=== PATIENT | female | born 1985 | race Caucasian/White ===

== ENCOUNTER 2017-02-02 16:16 | Emergency (ER) | payer SELFPAY ==
--- NOTE | 2017-02-02 16:42 | ED ---
General Adult HPI - General Chief complaint: Recheck/Abnormal Lab/Rx Stated complaint: swollen vein in leg Time Seen by Provider: 02/02/17 16:38 Source: patient, RN notes reviewed Mode of arrival: ambulatory Limitations: no limitations - History of Present Illness Initial comments: Patient 32-year-old female who is approximately 7 weeks , presenting today with a chief complaint of possible varicose vein to the popliteal area of the right. Patient does admit that she's noticed this in the past but is been more painful over the last day. She denies any other complaints or symptoms. Patient denies any recent fever, chills, shortness of breath, chest pain, back pain, abdominal pain, nausea or vomiting, numbness or tingling, dysuria or hematuria, constipation or diarrhea, headaches or visual changes, or any other complaints. - Related Data Home Medications Medication Instructions Recorded Confirmed Pnv,Calcium 72/Iron/Folic Acid 1 tab PO HS 11/03/14 02/02/17 [ Plus Tablet] Allergies Allergy/AdvReac Type Severity Reaction Status Date / Time No Known Allergies Allergy Verified 02/02/17 16:41 Review of Systems ROS Statement: Those systems with pertinent positive or pertinent negative responses have been documented in the HPI. ROS Other: All systems not noted in ROS Statement are negative. Past Medical History Past Medical History: No Reported History Additional Past Medical History / Comment(s): Obstetric history: First was a primary low transverse for Breech. This is her second . She has had care with mn since 7 weeks gestation. A+, abs neg, Rub Imm, RPR Nr, Hep B neg. She does have gestational diabetes A1, followed with NSTs and USs. GBS neg. Discussed all risks of with her several times during the . History of Any Multi-Drug Resistant Organisms: None Reported Past Surgical History: Section Past Anesthesia/Blood Transfusion Reactions: No Reported Reaction Past Psychological History: No Psychological Hx Reported Smoking Status: Never smoker Past Alcohol Use History: None Reported Past Drug Use History: None Reported General Exam - General Exam Comments Initial Comments: General: The patient is awake and alert, in no distress, and does not appear acutely ill. Neck: The neck is supple, there is no tenderness or JVD. Cardiovascular: There is a regular rate and rhythm. No murmur, rub or gallop is appreciated. Respiratory: Lungs are clear to auscultation, respirations are non-labored, breath sounds are equal. No wheezes, stridor, rales, or rhonchi. Musculoskeletal: Full range motion. Sensation intact. Pulses bilateral 2+. Strength 5/5 in all areas. Neurological: A&O x 3. CN II-XII intact, There are no obvious motor or sensory deficits. Coordination appears grossly intact. Speech is normal. Skin: Redness popliteal on the right with tenderness present. Psychiatric: Normal mood and affect. Limitations: no limitations Course Vital Signs 02/02/17 16:30 Temperature 97.0 F L Pulse Rate 83 Respiratory 17 Rate Blood Pressure 131/78 O2 Sat by Pulse 99 Oximetry Medical Decision Making - Medical Decision Making Patient REVIEWED SHOWS NO EVIDENCE OF DVT. THERE IS EVIDENCE FOR POSSIBLE SUPERFICIAL VENOUS THROMBOSIS TO POPLITEAL AREA. RESULTS WERE DISCUSSED WITH THE PATIENT. SHE IS ADVISED Warm COMPRESSES.. TYLENOL FOR PAIN. ADVISED RETURN TO EMERGENCY ROOM IF SYMPTOMS INCREASE OR WORSEN OR FOR ANY OTHER CONCERNS. Disposition Clinical Impression: Thrombophlebitis Disposition: HOME SELF-CARE Condition: Good Instructions: Superficial Thrombophlebitis (ED) Additional Instructions: Please use warm compresses to the affected area. Please follow-up with your OB/ [employer] over the next 2 days. Please return here to emergency room if any symptoms increase worsen or for any other concerns. Referrals: Oral Jackson DO [Primary Care Provider] - 1-2 days Time of Disposition: 17:33
--- NOTE | 2017-02-02 17:25 | US ---
EXAMINATION TYPE: US venous doppler duplex LE RT DATE OF EXAM: 02/02/2017 5:18 PM COMPARISON: NONE CLINICAL HISTORY: Pain. Swollen/tender varicose veins right popliteal fossa and upper calf SIDE PERFORMED: Right TECHNIQUE: The lower extremity deep venous system is examined utilizing real time linear array sonog radha with graded compression, doppler sonography and color-flow sonography. VESSELS IMAGED: External Iliac Vein (EIV) Common Femoral Vein Deep Femoral Vein Greater Saphenous Vein * Femoral Vein Popliteal Vein Small Saphenous Vein * Proximal Calf Veins (* superficial vessels) Right Leg: No evidence of DVT. Probable superficial thrombus noted within superficial veins poplitea l fossa/upper calf IMPRESSION: 1. Superficial thrombophlebitis. 2. No evidence for DVT.
[2017-02-02 17:45] VITALS: BP 108/58; PULSE 75; RESP 18; TEMP 98
== END 2017-02-02 17:46 | disposition home or self-care (01) ==
LOC: EC 16:16
DX: I80.9 Phlebitis and thrombophlebitis of unspecified site (principal); Z79.899 Other long term (current) drug therapy
CPT/HCPCS: 99283

== ENCOUNTER 2017-07-26 13:24 | Outpatient (CLI) | payer OTHER ==
[2017-07-26 13:43] VITALS: BP 119/70; PULSE 75; RESP 16; TEMP 97.7
--- NOTE | 2017-08-25 19:18 | P.MSEPDOC ---
Presenting Problems - Arrival Data Date of Arrival on Unit: 07/26/17 Time of Arrival on Unit: 13:30 Mode of Transport: Ambulatory - Complaint OB-Reason for Admission/Chief Complaint: NST Comment: Pt here for NST for Twin Medical History - Information : 3 Para: 2 Term: 2 : 0 Abortions: Spontaneous or Elective: 0 Number of Living Children: 2 - Gestational Age Gestational Age by OLIVA (wks/days): 33 Weeks and 5 Days Review of Systems - Review of Systems Constitutional: No problems Breast: No problems ENT: No problems Cardiovascular: No problems Respiratory: No problems Gastrointestinal: No problems Genitourinary: No problems Musculoskeletal: No problems Neurological: No problems Skin: No problems Vital Signs - Temperature Temperature: 97.7 F Temperature Source: Temporal Artery Scan - Pulse Pulse Oximetery Pulse Rate: 75 Pulse Assessment Method: Automatic Cuff - Respirations Respiratory Rate: 16 Oxygen Delivery Method: Room Air - Blood Pressure Right Arm Blood Pressure: 119/70 Blood Pressure Mean: 86 Blood Pressure Source: Automatic Cuff Medical Screen Scoring (Pre) - Cervical Exam Dilation: Exam Deferred Effacement: Exam Deferred - Uterine Contractions Frequency: N/A Duration: N/A Intensity: N/A - Maternal Vital Signs Maternal Temperature: N/A Maternal Blood Pressure: N/A Signs of Preeclampsia: N/A Maternal Respirations: N/A - Pain Assessment Pain Scale Used: Numeric (1 - 10) Pain Intensity: 0 - Maternal Trauma Maternal Trauma: N/A - Assessment Baseline FHR: 140 Heart Rate - NICHD Category: Category I (Normal) = 0 NST: Reactive Position: N/A Station: N/A - Total Score Total Score (Pre): 0 - Level of Risk Level of Risk: Low (0-5) Physician Notification (Pre) - Physician Notified Physician Notified Date: 07/26/17 Physician Notified Time: 13:50 Physician/Practitioner Notifed:: Dr Leahy Spoke With: Dr Leahy New Order Received: No - Notification Comment Comment: Reactive NST for baby A & B Disposition - Disposition OB Disposition: Discharge to home Discharge Date: 07/26/17 Discharge Time: 13:58 I agree with the RN Medical Screening Exam: Yes Risk & Benefit of care provided described in d/c instruction: Yes Diagnosis: TWIN , DICHORIONIC/DIAMNIOTIC, THIRD TRIMESTER
== END 2017-07-26 13:58 | disposition home or self-care (01) ==
LOC: FBPOP 13:24
PROVIDERS: ATTEND Obstetrics & Gynecology
DX: O30.043 Twin pregnancy, dichorionic/diamniotic, third trimester (principal); Z3A.33 33 weeks gestation of pregnancy
CPT/HCPCS: 59025; 99213

== ENCOUNTER 2017-08-02 12:58 | Outpatient (CLI) | payer OTHER ==
[2017-08-02] MEDS ORDERED: DIPH,PERTUS(ACELL)TETVAC-LF 0.5 ML VIAL IM ONE (14:06)
[2017-08-02 15:43] VITALS: BP 120/84; PULSE 67; RESP 18; TEMP 97.9
--- NOTE | 2017-08-25 19:11 | P.MSEPDOC ---
Presenting Problems - Arrival Data Date of Arrival on Unit: 08/02/17 Time of Arrival on Unit: 12:58 Mode of Transport: Ambulatory - Complaint OB-Reason for Admission/Chief Complaint: NST Comment: here per request of Dr Dick for weekly twin nst. does not present with order. Dr Dick in department order received Medical History - Information : 3 Para: 2 Term: 2 : 0 Abortions: Spontaneous or Elective: 0 Number of Living Children: 2 - Gestational Age Gestational Age by OLIVA (wks/days): 34 Weeks and 5 Days - History Complications: Prior Review of Systems - Review of Systems Constitutional: No problems Breast: No problems ENT: No problems Cardiovascular: No problems Respiratory: No problems Gastrointestinal: No problems Genitourinary: No problems Musculoskeletal: No problems Neurological: No problems Skin: No problems Vital Signs - Temperature Temperature: 97.9 F Temperature Source: Oral - Pulse Right Pulse Rate: 67 Pulse Assessment Method: Automatic Cuff - Respirations Respiratory Rate: 18 Oxygen Delivery Method: Room Air O2 Sat by Pulse Oximetry: 98 - Blood Pressure Right Arm Blood Pressure: 120/84 Blood Pressure Mean: 96 Blood Pressure Source: Automatic Cuff Medical Screen Scoring (Pre) - Cervical Exam Dilation: Exam Deferred Effacement: Exam Deferred - Uterine Contractions Frequency: N/A - Maternal Vital Signs Maternal Temperature: N/A Maternal Blood Pressure: N/A Signs of Preeclampsia: N/A Maternal Respirations: N/A - Pain Assessment Pain Location and Character: Pelvic Pain Scale Used: Numeric (1 - 10) Pain Intensity: 2 Pain Management Goal: 0 Pain Description: Pressure Pain Radiation Location: none Pain Frequency: Intermittent Pain Duration Units: last few days Pain Behavior: None Exhibited Effects of Pain: none Pain Aggravating Factors: Standing, Walking - Maternal Trauma Maternal Trauma: N/A - Assessment Baseline FHR: a 135 b 130 both reactive nsts Heart Rate - NICHD Category: Category I (Normal) = 0 NST: Reactive - Total Score Total Score (Pre): 0 - Level of Risk Level of Risk: N/A Physician Notification (Pre) - Physician Notified Physician Notified Date: 08/02/17 Physician Notified Time: 14:10 Physician/Practitioner Notifed:: Dr Stout Spoke With: Dr Dick New Order Received: Yes (Tdap vac and discharge) - Notification Comment Comment: Nst baby a and b reactive. Tdap vac given. dischaged home to keep appt this . Disposition - Disposition OB Disposition: Discharge to home Discharge Date: 08/02/17 Discharge Time: 14:30 I agree with the RN Medical Screening Exam: Yes Risk & Benefit of care provided described in d/c instruction: Yes Diagnosis: TWIN , DICHORIONIC/DIAMNIOTIC, THIRD TRIMESTER
== END 2017-08-02 14:30 | disposition home or self-care (01) ==
LOC: FBPOP 12:58
PROVIDERS: ATTEND Obstetrics & Gynecology
DX: O30.043 Twin pregnancy, dichorionic/diamniotic, third trimester (principal); Z3A.34 34 weeks gestation of pregnancy
CPT/HCPCS: 59025; 90715

== ENCOUNTER 2017-08-09 12:36 | Outpatient (CLI) | payer OTHER ==
--- NOTE | 2017-08-09 19:05 | P.MSEPDOC ---
Presenting Problems - Arrival Data Date of Arrival on Unit: 08/09/17 Time of Arrival on Unit: 12:36 Mode of Transport: Ambulatory - Complaint OB-Reason for Admission/Chief Complaint: NST Medical History - Information : 3 Para: 2 Term: 2 : 0 Abortions: Spontaneous or Elective: 0 Number of Living Children: 2 - Gestational Age Gestational Age by OLIVA (wks/days): 35 Weeks and 5 Days - History Complications: Multiple Medical Screen Scoring (Pre) - Cervical Exam Dilation: Exam Deferred Effacement: Exam Deferred Membranes: Intact - Uterine Contractions Frequency: N/A Duration: N/A Intensity: N/A - Maternal Vital Signs Maternal Temperature: N/A Signs of Preeclampsia: N/A Maternal Respirations: N/A - Pain Assessment Pain Scale Used: Numeric (1 - 10) Pain Intensity: 1 Pain Management Goal: 2 - Maternal Trauma Maternal Trauma: N/A - Assessment Baseline FHR: Twin a 136 Twin b 168 Heart Rate - NICHD Category: Category I (Normal) = 0 NST: Reactive Position: N/A Station: N/A - Total Score Total Score (Pre): 0 - Level of Risk Level of Risk: N/A Physician Notification (Pre) - Physician Notified Physician Notified Date: 08/09/17 Physician Notified Time: 13:15 Physician/Practitioner Notifed:: bethany holt Spoke With: dr holt - Notification Comment Comment: Sent over with order for nst for twins every wednesday Disposition - Disposition OB Disposition: Triage, Discharge to home, Written follow up instructions reviewed Discharge Date: 08/09/17 Discharge Time: 13:25 I agree with the RN Medical Screening Exam: Yes Risk & Benefit of care provided described in d/c instruction: Yes Diagnosis: TWIN , DICHORIONIC/DIAMNIOTIC, THIRD TRIMESTER
== END 2017-08-09 13:25 | disposition home or self-care (01) ==
LOC: FBPOP 12:36
PROVIDERS: ATTEND Obstetrics & Gynecology
DX: O30.043 Twin pregnancy, dichorionic/diamniotic, third trimester (principal); Z3A.35 35 weeks gestation of pregnancy
CPT/HCPCS: 59025

== ENCOUNTER 2017-08-16 04:39 | Inpatient (IN) | payer OTHER ==
[2017-08-16] MEDS ORDERED: ceFAZolin IN SWFI 2 GM/20 ML SYRINGE IVP STA (05:14)
[2017-08-16] MEDS ORDERED: CITRIC ACID-SODIUM CITRATE 15 ML CUP PO ONE (05:14)
[2017-08-16 05:26] VITALS: BMI 34.0
[2017-08-16] MEDS ORDERED: KETOROLAC 30 MG/ML 1 ML VIAL ONE (05:52)
[2017-08-16] MEDS ORDERED: diphenhydrAMINE 50 MG/ML 1 ML VIAL ONE (05:52)
[2017-08-16] MEDS ORDERED: ONDANSETRON 4 MG/2 ML VIAL ONE (05:52)
[2017-08-16] MEDS ORDERED: LACTATED RINGERS 1,000 ML BAG IV ONE (05:52)
[2017-08-16] MEDS ORDERED: OXYTOCIN 10 UNIT/ML 1 ML VIAL ONE (05:52)
[2017-08-16] MEDS ORDERED: MORPHINE SULFATE (PF) 0.3 MG/0.3 ML SYR ONE (05:52)
[2017-08-16] MEDS ORDERED: DEXAMETHASONE SOD PHOS (MDV) 100 MG/10 ML VIAL ONE (05:52)
[2017-08-16] MEDS ORDERED: ePHEDrine SULFATE/0.9% NACL/PF 50 MG/5 ML SYRINGE IV ONE (05:52)
--- NOTE | 2017-08-16 05:57 | P.HPOB ---
History of Present Illness H&P Date: 08/16/17 Chief Complaint: Spontaneous rupture of membranes This is a 32-year-old female 3 para 2 with an estimated date of confinement of 09/09/2017, estimated gestational age of 36-4/7 weeks, who presents for complaints of spontaneous rupture membranes followed by contractions that started shortly after. She is a patient of Dr. Dotson and has been complicated by twin gestation. has been complicated by gestational diabetes diet controlled. labs: GC/chlamydia-negative RPR-nonreactive Rubella-immune 1 hour Glucola-181 Blood type-A+ Group B streptococcus-negative Obstetrical history: . Her first delivery was a section for breech. Her second was a vaginal after and was completed by gestational diabetes. Review of Systems Constitutional: Denies chills, Denies fever Eyes: denies blurred vision, denies pain Ears, nose, mouth and throat: Denies headache, Denies sore throat Cardiovascular: Denies chest pain, Denies shortness of breath Respiratory: Denies cough Gastrointestinal: Reports abdominal pain (Irregular contractions) Genitourinary: Reports pelvic pain, Reports Musculoskeletal: Reports low back pain, Denies myalgias Neurological: Denies numbness, Denies weakness Past Medical History Past Medical History: No Reported History Additional Past Medical History / Comment(s): Obstetric history: First was a primary low transverse for Breech. This is her second . She has had care with me since 7 weeks gestation. A+, abs neg, Rub Imm, RPR Nr, Hep B neg. She does have gestational diabetes A1, followed with NSTs and USs. GBS neg. Discussed all risks of with her several times during the . History of Any Multi-Drug Resistant Organisms: None Reported Past Surgical History: Section Past Anesthesia/Blood Transfusion Reactions: No Reported Reaction Past Psychological History: No Psychological Hx Reported Smoking Status: Never smoker Past Alcohol Use History: None Reported Past Drug Use History: None Reported - Past Family History Father History Unknown: Yes Medications and Allergies Home Medications Medication Instructions Recorded Confirmed Type Pnv,Calcium 72/Iron/Folic Acid 1 tab PO HS 11/03/14 08/16/17 History [ Plus Tablet] Allergies Allergy/AdvReac Type Severity Reaction Status Date / Time No Known Allergies Allergy Verified 08/16/17 04:48 Exam Osteopathic Statement: *. No significant issues noted on an osteopathic structural exam other than those noted in the History and Physical/Consult. - Vital Signs Vital signs: Vital Signs Temp Pulse Resp BP Pulse Ox 08/16/17 05:14 96.8 F L 80 16 128/79 100 Intake and Output 08/15/17 08/15/17 08/16/17 14:59 22:59 06:59 Other: Weight 98.43 kg HEENT: Within normal limits Heart: Regular rate and rhythm Lungs: Clear to auscultation bilaterally Abdomen: Cervix: 5-6 cm Positive amnisure with clear fluid noted Extremities: Negative Homans Assessment and Plan (1) Twin gestation in third trimester Current Visit: Yes Status: Acute Code(s): O30.003 - TWIN PREG, UNSP NUM PLCNTA & AMNIO SACS, THIRD TRIMESTER SNOMED Code(s): 67403105 Plan: Plan is admission for urgent section. I have discussed the risks, benefits, and alternative therapies for the above- mentioned procedure and for both sedation/anesthesia as well as necessary blood products administration, if indicated, as they pertain to this patient. The patient has indicated her understanding and acceptance of the risks and procedures discussed.
[2017-08-16 06:08] LABS: Basophils % (A) 0 %; Eosinophils # (A) 0.1 k/uL (0-0.7); Eosinophils % (A) 1 %; HGB 10.3 gm/dL (11.4-16.0); Hypochromasia Moderate; Lymphocytes # (A) 2.5 k/uL (1.0-4.8); Lymphocytes % (A) 21 %; MCH 25.6 pg (25.0-35.0); MCHC 32.2 g/dL (31.0-37.0); MCV 79.6 fL (80.0-100.0); Mean Platelet Volume 12.4; Monocytes # (A) 0.5 k/uL (0-1.0); Monocytes % (A) 4 %; Neutrophils # (A) 8.3 k/uL (1.3-7.7); Neutrophils % (A) 72 %; Platelet Count 119 k/uL (150-450); RBC 4.02 m/uL (3.80-5.40); RDW 13.4 % (11.5-15.5); WBC 11.6 k/uL (3.8-10.6)
[2017-08-16] MEDS ORDERED: NALOXONE 0.4 MG/ML 1 ML VIAL IV PRN ×2 (06:23→06:49)
[2017-08-16] MEDS ORDERED: MORPHINE SULF 5MG/10ML VL IVP PRN (06:23)
[2017-08-16] MEDS ORDERED: diphenhydrAMINE 50 MG/ML 1 ML VIAL IVP PRN ×3 (06:23→06:49)
[2017-08-16] MEDS ORDERED: ONDANSETRON 4 MG/2 ML VIAL IVP PRN ×2 (06:23→06:49)
[2017-08-16 06:37] LABS: Large Platelets Present
--- NOTE | 2017-08-16 06:47 | P.OP ---
Date of Procedure: 08/16/17 Preoperative Diagnosis: 1. Intrauterine at 36-4/7 weeks. 2. Twin gestation. 3. Previous . 4. Gestational diabetes diet controlled. Postoperative Diagnosis: Same Procedure(s) Performed: Repeat low transverse section Anesthesia: spinal (Duramorph) Surgeon: Casi Bernardo Rehab Tech #1: Isidra Love Estimated Blood Loss (ml): 600 Pathology: other (Placentas) Condition: stable Disposition: floor Indications for Procedure: This is a 32-year-old female 3 para 2 at 36-4/7 weeks with twin gestation who presented with spontaneous rupture of membranes. She was found to be grossly ruptured and dilated 5-6 cm. She had previously been scheduled for a repeat section. I have discussed the risks, benefits, and alternative therapies for the above- mentioned procedure and for both sedation/anesthesia as well as necessary blood products administration, if indicated, as they pertain to this patient. The patient has indicated her understanding and acceptance of the risks and procedures discussed. Operative Findings: Baby A is a viable male in the vertex presentation with scores of 7 at 1 minute and 8 at 5 minutes and infant weight of 5 pounds 10.3 ounces. Baby B is a viable male infant in the vertex presentation with scores of 7 at 1 minute and 9 at 5 minutes and weight of 5 pounds 8.7 ounces. Normal uterus tubes and ovaries are noted. 2 sacs and 2 placentas were noted. Description of Procedure: The patient is taken to the operating room where she is placed in the dorsal supine position with leftward tilt after spinal Duramorph anesthesia is given. She is prepped and draped in the normal sterile fashion. Skin was tested and found to be adequately anesthetized. A Pfannenstiel skin incision was made through the previous laparotomy scar with a scalpel. A second knife was used to carry the incision down to the underlying layer of fascia. The fascia was nicked in the midline with a scalpel and then extended laterally bilaterally with Garcia scissors. The anterior lip of the fascia was grasped with 2 Tika clamps and then dissected off the underlying rectus muscle in the midline with Garcia scissors. The inferior aspect of the fascial incision was grasped with 2 Tika clamps and dissected off the underlying rectus muscle and the midline with Garcia scissors. Next the peritoneum layer was tented up with 2 hemostats and then entered sharply with the scalpel. The incision is extended superiorly and inferiorly with Metzenbaum scissors. Next a DeLee retractor is placed. The vesicouterine peritoneum is entered sharply with Metzenbaum scissors and extended laterally bilaterally with Metzenbaum scissors and then the bladder flap is pushed inferiorly. The lower uterine segment is incised in transverse fashion with the scalpel and then bluntly entered with a hemostat. Clear fluid is noted. The incision was then extended laterally bilaterally with 2 fingers. Next the baby A's head is delivered through the incision. Nose and mouth are bulb suctioned. The remainder of the is easily delivered and placed on mother's abdomen. Cord is clamped and cut. is taken to warmer by nursing staff. Next baby B is brought to the incision in a vertex presentation and then the bag of water is ruptured with a hemostat with clear fluid noted. Next the infant's head is delivered through the incision and nose and mouth are bulb suctioned. With one further push the remainder the infant is easily delivered and cord is clamped and cut. Baby B is taken to warmer for evaluation. Uterine fundus is gently massaged and placentas are delivered manually. Uterus is exteriorized and cleared of all clots and debris. Uterine incision is closed with 0 Vicryl suture in a running locked fashion. A second layer of 0 Vicryl suture is used in a running fashion for hemostasis. Once adequate hemostasis as assured, the vesicouterine peritoneum is reapproximated with 2-0 Vicryl suture in a running fashion. Posterior cul-de-sac is suctioned of all clots and debris. Uterus is returned to the abdomen. Incision is noted to be hemostatic. Peritoneal layer is closed with 0 Vicryl suture in a running fashion. Muscle layer is reapproximated with 0 Vicryl suture in interrupted fashion. Fascia layer is then closed with 0 PDS suture with 2 sutures meeting in the midline and the knots buried in either side and in the midline. The subcutaneous tissue was then closed with 2-0 Vicryl suture. Skin layer was then closed with padmini. All sponge and needle counts are correct. The patient is taken to recovery room in stable condition.
[2017-08-16] MEDS ORDERED: diphenhydrAMINE 25 MG CAP PO PRN (06:49)
[2017-08-16] MEDS ORDERED: HYDROcodone/APAP 5-325MG 1 EACH TAB PO PRN (06:49)
[2017-08-16] MEDS ORDERED: ZOLPIDEM 5 MG TAB PO PRN (06:49)
[2017-08-16] MEDS ORDERED: ACETAMINOPHEN TAB 325 MG TAB PO PRN (06:49)
[2017-08-16] MEDS ORDERED: diphenhydrAMINE 50 MG CAP PO PRN (06:49)
[2017-08-16] MEDS ORDERED: LANOLIN CREAM 5 GM TUBE TOPICAL PRN (06:49)
[2017-08-16] MEDS ORDERED: METOCLOPRAMIDE 5 MG/ML 2 ML VIAL IVP PRN (06:49)
[2017-08-16] MEDS ORDERED: OXYTOCIN 20 UNITS/1000 ML NS 1,000 ML IV SCH (06:49)
[2017-08-16] MEDS: SENNOSIDES-DOCUSATE SODIUM 1 EACH TAB PO SCH ×2 (07:21→21:22)
[2017-08-16] MEDS: LACTATED RINGERS 1,000 ML IV SCH ×3 (10:13→17:47)
[2017-08-16] MEDS: KETOROLAC 30 MG/ML 1 ML VIAL IVP PRN ×2 (11:47→17:46)
[2017-08-17] MEDS: KETOROLAC 30 MG/ML 1 ML VIAL IVP PRN ×2 (01:35→07:42)
[2017-08-17] MEDS: LACTATED RINGERS 1,000 ML IV SCH (04:47)
[2017-08-17] MEDS: SENNOSIDES-DOCUSATE SODIUM 1 EACH TAB PO SCH ×2 (07:43→19:36)
[2017-08-17 08:27] LABS: Basophils % (A) 0 %; Eosinophils # (A) 0.1 k/uL (0-0.7); Eosinophils % (A) 1 %; HCT 28.2 % (34.0-46.0); HGB 8.8 gm/dL (11.4-16.0); Hypochromasia Slight; Lymphocytes % (A) 19 %; MCH 24.6 pg (25.0-35.0); MCHC 31.1 g/dL (31.0-37.0); MCV 79.3 fL (80.0-100.0); Mean Platelet Volume 8.7; Monocytes # (A) 0.4 k/uL (0-1.0); Monocytes % (A) 4 %; Neutrophils # (A) 8.1 k/uL (1.3-7.7); Neutrophils % (A) 75 %; Platelet Count 100 k/uL (150-450); RBC 3.56 m/uL (3.80-5.40); RDW 13.5 % (11.5-15.5); WBC 10.7 k/uL (3.8-10.6)
--- NOTE | 2017-08-17 08:48 | P.PN ---
Progress Note - Text Date:08/17 Time:720 am] Patient is status post for twins. Patient seen this morning with a VAS score of 3. c/o of pruritus bot most of it has resolved, no c/o nausea/ vomiting, comfortable and doing well.
--- NOTE | 2017-08-17 08:51 | P.PNOBGPC ---
Subjective - Subjective Principal diagnosis: Status post repeat section postoperative day #1 Interval history: Patient is doing well. She is ambulating. Pain is fairly well controlled with current pain medication. Lochia is decreasing. Her babies are in the level I nursery and have feeding tubes at this time. She does plan to bottle feed. She is passing flatus but no bowel movement yet. Patient reports: Reports appetite normal, Reports voiding normally, Reports pain well controlled, Reports ambulating normally : other (In level I nursery) Objective - Vital Signs Latest vital signs: Vital Signs Temp Pulse Resp BP Pulse Ox 08/17/17 08:00 98.3 F 73 16 102/64 98 08/17/17 04:00 98.5 F 66 16 131/79 99 08/17/17 02:00 16 08/17/17 00:00 98.1 F 67 16 111/66 99 08/16/17 22:00 16 08/16/17 19:55 97.9 F 69 16 138/72 98 08/16/17 16:00 18 08/16/17 15:48 97.5 F L 72 18 127/70 100 08/16/17 15:00 18 08/16/17 13:00 16 08/16/17 12:00 97.8 F 75 18 123/62 99 08/16/17 11:00 17 08/16/17 09:23 18 08/16/17 09:00 73 18 131/64 100 Intake and Output 08/16/17 08/17/17 08/17/17 22:59 06:59 14:59 Intake Total 50 600 Output Total 700 600 Balance -650 0 Intake: Intake, IV Titration 600 Amount Lactated Ringers 1,000 ml 600 @ 125 mls/hr IV .Q8H [facility] Rx#:[id number] Oral 50 Output: Urine 700 600 Uretheral (Deleon) 700 Other: # Voids 1 - Exam Extremities: Present: normal, edema (Trace). Absent: tenderness Abdomen: Present: normal appearance, soft (Positive bowel sounds 4). Absent: distention, tenderness Incision: Present: normal, dry, intact. Absent: erythematous Uterus: Present: normal, firm. Absent: tenderness - Labs Labs: Abnormal Lab Results - Last 24 Hours (Table) 08/17/17 Range/Units 07:39 WBC 10.7 H (3.8-10.6) k/uL RBC 3.56 L (3.80-5.40) m/uL Hgb 8.8 L D (11.4-16.0) gm/dL Hct 28.2 L (34.0-46.0) % MCV 79.3 L (80.0-100.0) fL MCH 24.6 L (25.0-35.0) pg Plt Count 100 L (150-450) k/uL Neutrophils # 8.1 H (1.3-7.7) k/uL Assessment and Plan Assessment: Status post repeat section for twin delivery postoperative day #1 (1) Twin gestation in third trimester Current Visit: Yes Status: Acute Code(s): O30.003 - TWIN PREG, UNSP NUM PLCNTA & AMNIO SACS, THIRD TRIMESTER SNOMED Code(s): 37120876 Plan: Continue with postoperative and care. Will advance diet as tolerated.
[2017-08-17] MEDS: IBUPROFEN 600 MG TAB PO PRN ×2 (16:26→23:08)
[2017-08-17] MEDS: HYDROcodone/APAP 5-325MG 1 EACH TAB PO PRN (19:36)
[2017-08-18] MEDS: HYDROcodone/APAP 5-325MG 1 EACH TAB PO PRN ×4 (01:48→22:07)
[2017-08-18] MEDS: IBUPROFEN 600 MG TAB PO PRN ×3 (05:32→18:11)
[2017-08-18] MEDS: SENNOSIDES-DOCUSATE SODIUM 1 EACH TAB PO SCH ×2 (07:59→19:15)
[2017-08-18] MEDS: LACTATED RINGERS 1,000 ML IV SCH (08:39)
--- NOTE | 2017-08-18 08:53 | P.PNOBGPC ---
Subjective - Subjective Principal diagnosis: Status post repeat section postoperative day #2 Interval history: Patient is doing well. Her pain is better controlled today. Lochia is decreasing. She is passing flatus but no bowel movement yet. Babies are still in level I nursery. Patient reports: Reports appetite normal, Reports voiding normally, Reports pain well controlled, Reports ambulating normally : other (In level I nursery) Objective - Vital Signs Latest vital signs: Vital Signs Temp Pulse Resp BP Pulse Ox //18 08:00 98.4 F 80 18 125/76 100 08/17/18 23:55 97.8 F 87 16 140/68 97 //18 16:00 97.5 F L 90 16 120/73 - Exam Extremities: Present: normal. Absent: tenderness Abdomen: Present: normal appearance, soft (Positive bowel sounds 4). Absent: distention, tenderness Incision: Present: normal, dry, intact. Absent: erythematous Uterus: Present: normal, firm. Absent: tenderness Assessment and Plan Assessment: Status post repeat section postoperative day #2 (1) Twin gestation in third trimester Current Visit: Yes Status: Acute Code(s): O30.003 - TWIN PREG, UNSP NUM PLCNTA & AMNIO SACS, THIRD TRIMESTER SNOMED Code(s): 64498530 Plan: Continue with postoperative care. Patient will likely stay until postoperative day #4 since the babies are in the nursery.
[2017-08-19] MEDS: IBUPROFEN 600 MG TAB PO PRN ×3 (02:47→18:17)
[2017-08-19] MEDS: HYDROcodone/APAP 5-325MG 1 EACH TAB PO PRN ×2 (05:26→12:58)
[2017-08-19] MEDS: SENNOSIDES-DOCUSATE SODIUM 1 EACH TAB PO SCH ×2 (08:06→21:06)
--- NOTE | 2017-08-19 08:59 | P.PNOBGPC ---
Subjective - Subjective Principal diagnosis: Status post repeat section postoperative day #3 Interval history: Patient is ambulating. She is passing flatus but no bowel movement yet. Her pain is fairly well controlled. Lochia is decreasing. Patient reports: Reports appetite normal, Reports voiding normally, Reports pain well controlled, Reports ambulating normally : other (Babies are in level I nursery) Objective - Vital Signs Latest vital signs: Vital Signs Temp Pulse Resp BP Pulse Ox 08/19/17 08:00 98.2 F 86 18 124/70 100 08/18/17 23:51 98.2 F 76 17 112/65 99 08/18/17 15:51 97.6 F 75 18 134/72 100 - Exam Extremities: Present: normal. Absent: tenderness Abdomen: Present: normal appearance, soft (Positive bowel sounds 4). Absent: distention, tenderness Incision: Present: normal, dry, intact. Absent: erythematous Uterus: Present: normal, firm. Absent: tenderness Assessment and Plan Assessment: Impression is status post repeat section postoperative day #3 (1) Twin gestation in third trimester Current Visit: Yes Status: Acute Code(s): O30.003 - TWIN PREG, UNSP NUM PLCNTA & AMNIO SACS, THIRD TRIMESTER SNOMED Code(s): 31094379 Plan: Will continue with postoperative care until tomorrow. Patient is aware she will need to be discharged home tomorrow even if babies do need to stay in the nursery.
[2017-08-20] MEDS: HYDROcodone/APAP 5-325MG 1 EACH TAB PO PRN ×2 (00:11→12:18)
[2017-08-20 08:19] VITALS: BP 123/72; PULSE 88; RESP 16; TEMP 97.8
--- NOTE | 2017-08-20 08:30 | P.DS ---
Providers Date of admission: 08/16/17 05:10 Expected date of discharge: 08/20/17 Attending physician: Casi Bernardo Primary care physician: Stated None - Discharge Diagnosis(es) (1) Twin gestation in third trimester Current Visit: Yes Status: Acute Hospital Course: This is a 32-year-old female 3 para 2 at 36-4/7 weeks with twin gestation who presented with spontaneous rupture membranes in active labor. She underwent a repeat low transverse section under spinal Duramorph anesthesia on 08/16/2017 and delivered 2 viable male infants. Baby A was in the vertex presentation with scores of 7 at 1 minute and 8 at 5 minutes and infant weight of 5 pounds 10.3 ounces. Baby B was a viable male infant in the vertex presentation with scores of 7 at 1 minute and 9 at 5 minutes and weight of 5 pounds 8.7 ounces. Her postoperative course has been uncomplicated. Lochia is decreasing. Pain is fairly well controlled with ibuprofen and [place]. She has been passing flatus and bowel movement. She is bottle feeding. Vital signs are stable. Abdomen is soft with positive bowel sounds 4. Incision is clean dry and intact. Extremities show negative Homans. Impression is status post repeat section postoperative day # 4. Plan is to discharge home today. Leonela will be removed and Steri-Strips placed prior to discharge. Routine postoperative and instructions are given. She is advised to follow up with Dr. Dick in the office in approximately 1 week for a postoperative check and in 6 weeks for check. She is advised to call the office if she has any further questions or concerns prior to her appointment time. Procedures: Repeat low transverse section on 08/16/2017 Patient Condition at Discharge: Stable Plan - Discharge Summary New Discharge Prescriptions: No Action Pnv,Calcium 72/Iron/Folic Acid [ Plus Tablet] 1 tab PO HS Discharge Medication List Pnv,Calcium 72/Iron/Folic Acid [ Plus Tablet] 1 tab PO HS 11/03/14 [ History] Follow up Appointment(s)/Referral(s): Martina Dick DO [Doctor of Osteopathic Medicine] - 1 Week Activity/Diet/Wound Care/Special Instructions: Instructions 1. Do not begin any exercise program for 3 weeks. 2. Do not resume sexual relations for 3 weeks or longer if uncomfortable. 3. You may take tub baths or showers at any time. 4. You may use tampons if desired after 3 weeks. 5. Keep the area of episiotomy (stitches) clean and dry. 6. If you are not nursing, wear a good fitting, supportive bra during the day and limit fluid intake for at least 1 week to prevent breast engorgement. 7. Call the office, [phone], within the next week to make appointment for your 6 week checkup if it has not already been made. 8. Report any of the following occurrences to the doctor promptly: a. Heavy, excessive bleeding b. Chills, fever c. Burning or frequency of urination d. Pain or redness and breasts if nursing e. Increasing pain or swelling in episiotomy (stitches). In addition to the above instructions, the following additional should be followed: 1. No heavy lifting or straining (exercising) until after 6 week checkup. 2. Keep abdominal incision clean and dry: You may wear a dressing if more comfortable. 3. Make office appointment for 10 days after going home or as instructed by her doctor. Discharge Disposition: HOME SELF-CARE
[2017-08-20] MEDS: IBUPROFEN 600 MG TAB PO PRN (09:34)
[2017-08-20] MEDS: SENNOSIDES-DOCUSATE SODIUM 1 EACH TAB PO SCH (09:34)
== END 2017-08-20 15:00 | disposition home or self-care (01) | DRG 766 ==
LOC: FBPOP 04:39 → 4FBP 05:10
PROVIDERS: ADMIT Obstetrics & Gynecology; ATTEND Obstetrics & Gynecology
PROC: 10D00Z1 Extraction of Products of Conception, Low, Open Approach (ICD-10-PCS; principal; 2017-08-16 06:00)
DX: O30.043 Twin pregnancy, dichorionic/diamniotic, third trimester (principal); Z37.2 Twins, both liveborn; O34.211 Maternal care for low transverse scar from previous cesarean delivery; O24.420 Gestational diabetes mellitus in childbirth, diet controlled; Z3A.36 36 weeks gestation of pregnancy
CPT/HCPCS: 59025; 85025; 86850; 86900; 86901; 88307; 99213

== ENCOUNTER 2019-05-29 11:19 | Emergency (ER) | payer OTHER ==
[2019-05-29 11:26] VITALS: BP 110/76; PULSE 68; TEMP 98
--- NOTE | 2019-05-29 12:23 | XR ---
EXAMINATION TYPE: XR knee complete LT DATE OF EXAM: 05/29/2019 CLINICAL HISTORY: Pain after slip and fall injury today. TECHNIQUE: Three views of the left knee are obtained. COMPARISON: None. FINDINGS: There is no acute fracture/dislocation evident in left knee. The tri-compartment joint sp aces appear within normal limits. Increased density suprapatellar region could reflect new moderate s ize joint effusion. IMPRESSION: There is no acute fracture or dislocation in the left knee.
--- NOTE | 2019-05-29 12:27 | ED ---
General Adult HPI - General Chief complaint: Extremity Injury, Lower Stated complaint: knee injury Time Seen by Provider: 05/29/19 11:37 Source: patient, RN notes reviewed Mode of arrival: ambulatory Limitations: no limitations - History of Present Illness Initial comments: 34-year-old female without any significant past medical history presents to the emergency department for left knee pain. Patient states that earlier this morning she slipped on the ice. States she felt her knee popped when this occurred. She did not fall. States her knee has been sore since that time. States the longer she lets it sit without moving at the stiff or becomes. Denies hip or foot/ankle pain. Denies hitting her head. States she took Motrin prior to arrival. Refuses any other pain medications at this time stating it feels fine right now.Patient has no other complaints at this time including shortness of breath, chest pain, abdominal pain, nausea or vomiting, headache, or visual changes. - Related Data Home Medications Medication Instructions Recorded Confirmed Pnv,Calcium 72/Iron/Folic Acid 1 tab PO HS 11/03/08/16/17 [ Plus Tablet] Previous Rx's Medication Instructions Recorded HYDROcodone/APAP 5-325MG [Napa 1 each PO Q4HR PRN #30 tab 08/20/17 5-325] Ibuprofen [Motrin] 600 mg PO Q6HR PRN #60 tab 08/20/17 Allergies Allergy/AdvReac Type Severity Reaction Status Date / Time No Known Allergies Allergy Verified 05/29/19 11:23 Review of Systems ROS Statement: Those systems with pertinent positive or pertinent negative responses have been documented in the HPI. ROS Other: All systems not noted in ROS Statement are negative. Past Medical History Past Medical History: No Reported History Additional Past Medical History / Comment(s): Obstetric history: First was a primary low transverse for Breech. This is her second . She has had care with me since 7 weeks gestation. A+, abs neg, Rub Imm, RPR Nr, Hep B neg. She does have gestational diabetes A1, followed with NSTs and USs. GBS neg. Discussed all risks of with her several times during the . History of Any Multi-Drug Resistant Organisms: None Reported Past Surgical History: Section Past Anesthesia/Blood Transfusion Reactions: No Reported Reaction Past Psychological History: No Psychological Hx Reported Smoking Status: Never smoker Past Alcohol Use History: None Reported Past Drug Use History: None Reported - Past Family History Father History Unknown: Yes General Exam Limitations: no limitations General appearance: alert, in no apparent distress Head exam: Present: atraumatic, normocephalic, normal inspection Eye exam: Present: normal appearance, PERRL, EOMI. Absent: scleral icterus, conjunctival injection, periorbital swelling ENT exam: Present: normal exam, mucous membranes moist Neck exam: Present: normal inspection. Absent: tenderness, meningismus, lymphadenopathy Respiratory exam: Present: normal lung sounds bilaterally. Absent: respiratory distress, wheezes, rales, rhonchi, stridor Cardiovascular Exam: Present: regular rate, normal rhythm, normal heart sounds. Absent: systolic murmur, diastolic murmur, rubs, gallop, clicks Extremities exam: Present: normal capillary refill (Capillary refill less than 2 seconds, DP signals strong on Doppler), other (Sensation intact in the left lower extremity.). Absent: full ROM (She has 90 flexion of the left knee, full extension), tenderness (No significant tenderness of the left lower extremities.), pedal edema, joint swelling (No significant edema of the left knee.), calf tenderness Course Vital Signs 05/29/19 11:23 Temperature 98 F Pulse Rate 68 Respiratory 18 Rate Blood Pressure 110/76 O2 Sat by Pulse 100 Oximetry Medical Decision Making - Medical Decision Making X-ray of the left knee shows no acute fracture or dislocation. However there is a new moderate-sized joint effusion. Neurovascular status intact in the left lower extremities. Patient states pain is actually improved. Patient will be placed in a knee immobilizer and given crutches. She will follow up with orthopedics. She will return here if she has any worsening symptoms. She refused pain medications here in the emergency department, recommended she take Motrin and Tylenol for pain. Disposition Clinical Impression: Knee pain, left, Joint effusion of knee Disposition: HOME SELF-CARE Condition: Good Instructions (If sedation given, give patient instructions): Knee Pain (ED) Additional Instructions: Please take Motrin and Tylenol for pain. Use crutches as needed. Use immobilizer until you see orthopedics. Follow-up orthopedics in the next 1-2 days. Return to the emergency department if you have any worsening symptoms. Is patient prescribed a controlled substance at d/c from ED?: No Referrals: Oral Jackson DO [Primary Care Provider] - 1-2 days Paras Danielle DO [Doctor of Osteopathic Medicine] - 1-2 days Time of Disposition: 12:44
[2019-05-29 13:30] VITALS: RESP 20
== END 2019-05-29 13:31 | disposition home or self-care (01) ==
LOC: EC 11:19
DX: M25.462 Effusion, left knee (principal); W00.0XXA Fall on same level due to ice and snow, initial encounter
CPT/HCPCS: 99283 ×2; 73562; L1830

== ENCOUNTER → 2019-06-09 | Outpatient (CLI) | payer OTHER ==
--- NOTE | 2019-06-09 13:34 | MR ---
EXAMINATION TYPE: MR knee LT wo con DATE OF EXAM: 06/09/2019 COMPARISON: Outside x-ray 9 days ago HISTORY: Left knee pain per order. Outer pain and swelling after slip and fall injury per patient TECHNIQUE: Multiplanar, multisequence images of the knee is performed without IV contrast. FINDINGS: MEDIAL MENISCUS: Anterior and posterior horns are intact without tear. LATERAL MENISCUS: Anterior and posterior horns are intact without tear. CRUCIATE LIGAMENTS: The anterior and posterior cruciate ligaments are intact and unremarkable. COLLATERAL LIGAMENTS: The medial collateral ligament and lateral collateral ligament complex are inta ct. Mild to moderate fluid signal surrounds the medial collateral ligament particularly superficial f ibers. EXTENSOR MECHANISM: Visualized quadriceps and patellar tendons are intact. EFFUSION: There is moderate size suprapatellar joint effusion with some thin septa. POPLITEAL CYST: No popliteal/brennan cyst. TRICOMPARTMENT SPACES: Tricompartment joint space is fairly well-maintained. No significant spurring. CARTILAGE: Tricompartment articular cartilage is preserved. Minimal fissuring posterior patellar pole axial image 17 for reference. BONE MARROW SIGNAL: Area of heterogeneous increased T2 signal involving the anterior lateral aspect o f the tibial plateau seen best on axial image 13, sagittal image 9, and coronal image 12.. Involvemen t measures roughly 2.7 cm AP diameter by 1.9 cm transversely by 2.8 cm craniocaudal diameter. No defi nitive abnormal linear low T1 signal. There is additional area of osseous contusion involving the inferior aspect of the medial patellar me asuring roughly 1.2 cm axial image 14. The medial retinaculum particularly medial aspect shows areas of discontinuity and wavy pattern and is felt to warrant on review of axial images. But tell articula tion show some lateral tilting with flattening of the anterior condyles concerning for underlying tro chlear dysplasia particularly along superior aspect of joint. OTHER: No additional significant abnormality is appreciated. IMPRESSION: MRI findings consistent with transient lateral patellar dislocation, there is tear of the medial reti naculum thought present. There is associated osseous contusion injury involving the medial aspect of the patella and the anterolateral aspect of the tibial plateau. There is associated moderate suprapat ellar joint effusion. Mild MCL sprain injury thought product of patellar dislocation. Persistent late ral tilting noted. 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 No ACL tear.
== END | disposition home or self-care (01) ==
LOC: RADMRIMAIN 12:43
PROVIDERS: ATTEND Orthopaedic Surgery
DX: S83.005A Unspecified dislocation of left patella, initial encounter (principal)

== ENCOUNTER 2022-12-31 05:53 | Inpatient (IN) | payer OTHER ==
[2022-12-29 16:05] VITALS: BMI 35.5
[2022-12-31] MEDS ORDERED: OXYTOCIN 10 UNIT/ML 1 ML VIAL IM PRN (06:11)
[2022-12-31] MEDS ORDERED: miSOPROStoL 200 MCG TAB PO PRN (06:11)
[2022-12-31] MEDS ORDERED: CITRIC ACID-SODIUM CITRATE 15 ML CUP PO ONE (06:11)
[2022-12-31] MEDS ORDERED: CARBOPROST TROMETHAMINE 250 MCG/ML 1 ML AMP IM PRN (06:11)
[2022-12-31] MEDS ORDERED: METHYLERGONOVINE 0.2 MG/ML 1 ML AMP IM PRN (06:11)
[2022-12-31] MEDS ORDERED: LACTATED RINGERS 1,000 ML IV ONE (06:11)
[2022-12-31] MEDS ORDERED: TRANEXAMIC 1,000 MG/100ML-NACL 1,000 MG in EMPTY BAG 1 BAG IV PRN (06:11)
[2022-12-31 06:15] LABS: Glucose,Whole Blood 82 mg/dL (70-110)
[2022-12-31] MEDS ORDERED: OXYTOCIN 30 UNITS/500 ML NS 30 UNIT in SALINE 1 500ML.BAG IV SCH ×2 (06:15→09:00)
[2022-12-31] MEDS: LACTATED RINGERS 1,000 ML IV SCH ×2 (06:20→15:44)
[2022-12-31 06:35] LABS: Basophils % (A) 0 %; Eosinophils # (A) 0.1 k/uL (0-0.7); Eosinophils % (A) 1 %; HCT 34.9 % (34.0-46.0); Lymphocytes # (A) 0.9 k/uL (1.0-4.8); Lymphocytes % (A) 12 %; MCH 28.7 pg (25.0-35.0); MCHC 34.3 g/dL (31.0-37.0); MCV 83.7 fL (80.0-100.0); Mean Platelet Volume 10.3; Monocytes # (A) 0.4 k/uL (0-1.0); Monocytes % (A) 6 %; Neutrophils # (A) 5.6 k/uL (1.3-7.7); Neutrophils % (A) 79 %; Platelet Count 121 k/uL (150-450); RBC 4.17 m/uL (3.80-5.40); WBC 7.1 k/uL (3.8-10.6)
[2022-12-31 07:25] VITALS: RESP 16
[2022-12-31] MEDS ORDERED: OXYTOCIN 30 UNITS/500 ML NS BAG IV ONE (07:57)
[2022-12-31] MEDS ORDERED: KETOROLAC 15 MG/ML 1 ML VIAL ONE (07:57)
[2022-12-31] MEDS ORDERED: NALBUPHINE 10 MG/ML (10 ML MDV) ONE (07:57)
[2022-12-31] MEDS ORDERED: ONDANSETRON 4 MG/2 ML VIAL ONE (07:57)
[2022-12-31] MEDS ORDERED: PHENYLEPHRINE-0.9% NACL SYG 1,000 MCG/10 ML SYRINGE ONE (07:57)
[2022-12-31] MEDS ORDERED: MORPHINE SULFATE (PF) 0.3 MG/0.3 ML SYR ONE (07:57)
--- NOTE | 2022-12-31 08:47 | P.HPOB ---
History of Present Illness H&P Date: 12/31/22 Chief Complaint: Repeat low transverse with tubal ligation 37-year-old presents for repeat low transverse for IUGR and previous section she also would like her fallopian tube was tied today. Review of Systems All systems: negative Constitutional: Denies chills, Denies fever Eyes: denies blurred vision, denies pain Ears, nose, mouth and throat: Denies headache, Denies sore throat Cardiovascular: Denies chest pain, Denies shortness of breath Respiratory: Denies cough Gastrointestinal: Denies abdominal pain, Denies diarrhea, Denies nausea, Denies vomiting Genitourinary: Denies dysuria, Denies hematuria Musculoskeletal: Denies myalgias Integumentary: Denies pruritus, Denies rash Neurological: Denies numbness, Denies weakness Psychiatric: Denies anxiety, Denies depression Endocrine: Denies fatigue, Denies weight change Past Medical History Past Medical History: Diabetes Mellitus Additional Past Medical History / Comment(s): Diet Controlled Gestational Diabetes with this and with previous 3 pregnancies as well. "Vein issue right leg". History of Any Multi-Drug Resistant Organisms: None Reported Past Surgical History: Section Additional Past Surgical History / Comment(s): Section X2, wisdom teeth removed. Past Anesthesia/Blood Transfusion Reactions: Previous Problems w/ Anesthesia Additional Past Anesthesia/Blood Transfusion Reaction / Comment(s): With 1st Section patient had nausea during the surgery. Past Psychological History: No Psychological Hx Reported Smoking Status: Never smoker Past Alcohol Use History: None Reported Past Drug Use History: None Reported - Past Family History Father History Unknown: Yes Family Medical History: No Reported History Medications and Allergies Home Medications Medication Instructions Recorded Confirmed Type Pnv,Calcium 72/Iron/Folic Acid 1 tab PO HS 11/03/14 12/29/22 History [ Plus Tablet] Allergies Allergy/AdvReac Type Severity Reaction Status Date / Time No Known Allergies Allergy Verified 12/29/22 15:52 Exam Osteopathic Statement: *. No significant issues noted on an osteopathic structural exam other than those noted in the History and Physical/Consult. Vital Signs Temp Pulse Resp BP Pulse Ox 12/31/22 07:22 97.1 F L 87 16 121/85 100 Intake and Output 12/30/22 12/31/22 12/31/22 22:59 06:59 14:59 Other: Weight 99.79 kg Heart: Regular rate and rhythm Lungs: Clear to auscultation bilaterally Abdomen: Soft, nontender Extremities: Negative Homans sign Results Result Diagrams: 12/31/22 06:15 Abnormal Lab Results - Last 24 Hours (Table) 12/31/22 Range/Units 06:15 Plt Count 121 L (150-450) k/uL Lymphocytes # 0.9 L (1.0-4.8) k/uL Assessment and Plan (1) Intrauterine growth restriction (IUGR) affecting care of mother Current Visit: Yes Status: Acute Code(s): O36.5990 - MATERN CARE FOR OTH OR SUSP POOR FETL GRTH, UNSP TRI, UNSP SNOMED Code(s): 222844627 (2) Previous section Current Visit: Yes Status: Acute Code(s): Z98.891 - HISTORY OF UTERINE SCAR FROM PREVIOUS SURGERY SNOMED Code(s): 278044003 (3) Family planning Current Visit: Yes Status: Acute Code(s): Z30.09 - ENCOUNTER FOR OTH GENERAL CNSL AND ADVICE ON CONTRACEPTION SNOMED Code(s): 590901002 Plan: 1. Repeat low transverse with tubal ligation
[2022-12-31] MEDS ORDERED: diphenhydrAMINE 50 MG CAP PO PRN (08:49)
[2022-12-31] MEDS ORDERED: SIMETHICONE 80 MG CHEWABLE PO PRN (08:49)
[2022-12-31] MEDS ORDERED: ONDANSETRON 4 MG/2 ML VIAL IVP PRN (08:49)
[2022-12-31] MEDS ORDERED: diphenhydrAMINE 50 MG/ML 1 ML VIAL IVP PRN ×2 (08:49)
[2022-12-31] MEDS ORDERED: LANOLIN CREAM 5 GM TUBE TOPICAL PRN (08:49)
[2022-12-31] MEDS ORDERED: diphenhydrAMINE 25 MG CAP PO PRN (08:49)
[2022-12-31] MEDS ORDERED: NALOXONE 0.4 MG/ML 1 ML VIAL IV PRN (08:49)
[2022-12-31] MEDS ORDERED: ZOLPIDEM 5 MG TAB PO PRN (08:49)
--- NOTE | 2022-12-31 08:49 | P.OP ---
Date of Procedure: 12/31/22 Preoperative Diagnosis: 1. at 38 weeks and 4 days 2. Previous section 3. Intrauterine growth restriction 4. Family planning Postoperative Diagnosis: Same Procedure(s) Performed: Repeat low transverse with tubal ligation Anesthesia: spinal Surgeon: Martina Dick Mobile Application Tester #1: Casi Bernardo Estimated Blood Loss (ml): 400 IV fluids (ml): 900 Urine output (ml): 100 Pathology: other (Segments of bilateral fallopian tubes) Condition: stable Disposition: floor Operative Findings: Normal uterus, tubes, ovaries. in vertex position, Apgars 9, 9, weight 6 pounds Description of Procedure: Patient was taken to the operating room where spinal anesthesia was found be adequate. She was prepped and draped in normal sterile fashion in dorsal supine position with a leftward tilt. Pfannenstiel skin incision was made the scalpel and carried through to the underlying layer of fascia with the scalpel. Fascia was incised in midline and carried bilaterally with the Garcia scissors. The superior aspect of the fascial incision was grasped with Oscar clamps elevated and the underlying rectus muscles dissected off with the Garcia's. Attention was then turned to inferior aspect of same incision which in a similar fashion was grasped tented up and the underlying rectus muscles dissected off with the Garcia's. The rectus muscles were the midline and the peritoneum was identified tented up and entered sharply with the scalpel. The incision was extended superiorly and inferiorly with good visualization of the bladder. The bladder blade was inserted and the vesicouterine peritoneum was incised the Metzenbaums then carried bilaterally and bladder flap created digitally. A low transverse incision was then made on the uterus with the scalpel. This was carried bilaterally and digital manner. 's head delivered atraumatically, nose and mouth bulb suctioned, cord clamped and cut, handed off to waiting nurses. Apgars 9,9, weight 6 lbs. Placenta delivered manually, intact with three-vessel cord. The uterus is exteriorized and cleared of all clots and debris. The uterine incision was closed with 0 Vicryl in a running locked fashion. Second layer of the same sutures used in imbricating fashion to obtain excellent hemostasis. Both ovaries and tubes appeared normal. The right fallopian tube was grasped with a hemostat and a window was made in the mesosalpinx with the Bovie. The right fallopian tube was doubly ligated and a segment was removed and the pedicles were cauterized with the Bovie. The left fallopian tube was grasped with a hemostat and a window was made in the mesosalpinx with the Bovie. The left fallopian tube was doubly ligated and a segment was removed and the pedicles were cauterized with the Bovie. The uterus was placed back into the abdomen. The peritoneum was reapproximated using 2-0 Vicryl in a running fashion. The muscles were reapproximated using 2-0 Vicryl in interrupted fashion. The fascia was reapproximated using 0 Vicryl in a running fashion. The subcutaneous tissues closed with 3-0 Vicryl running fashion. The skin was closed padmini. Patient tolerated the procedure well, sponge and instrument counts were correct times 2 and she was taken to the recovery room in stable condition.
[2022-12-31] MEDS: ACETAMINOPHEN TAB 500 MG TAB PO SCH (13:06)
[2022-12-31] MEDS: METOCLOPRAMIDE 5 MG/ML 2 ML VIAL IVP PRN ×2 (13:31→20:24)
[2022-12-31] MEDS: KETOROLAC 15 MG/ML 1 ML VIAL IVP SCH (15:41)
[2023-01-01] MEDS: KETOROLAC 15 MG/ML 1 ML VIAL IVP SCH ×3 (00:18→11:59)
[2023-01-01] MEDS: LACTATED RINGERS 1,000 ML IV SCH ×2 (00:21→19:31)
[2023-01-01] MEDS: IBUPROFEN 600 MG TAB PO SCH ×6 (04:01→20:04)
[2023-01-01] MEDS: SENNOSIDES-DOCUSATE SODIUM 1 EACH TAB PO SCH ×3 (04:01→22:53)
[2023-01-01] MEDS: ACETAMINOPHEN TAB 500 MG TAB PO SCH ×4 (04:20→22:54)
--- NOTE | 2023-01-01 05:32 | P.PNOBGPC ---
Subjective - Subjective Principal diagnosis: S/P RLTCS with TL POD #1 Interval history: Patient seen and examined. Denies N/V, F/C, CP, SOB or calf pain. Patient reports: Reports appetite normal, Reports voiding normally, Reports pain well controlled, Reports ambulating normally Morgan: doing well Objective - Vital Signs Latest vital signs: Vital Signs Temp Pulse Resp BP Pulse Ox 01/01/23 04:00 98.0 F 70 16 108/70 99 01/01/23 00:00 97.9 F 73 16 102/68 98 12/31/22 20:00 98.6 F 65 16 111/74 98 12/31/22 16:00 96.9 F L 53 L 16 96/54 12/31/22 12:00 96.9 F L 58 L 16 103/61 99 12/31/22 10:48 97 F L 65 16 103/55 98 12/31/22 10:18 66 16 109/56 98 12/31/22 09:48 53 L 16 112/60 96 12/31/22 09:33 55 L 16 106/56 99 12/31/22 09:18 74 16 116/74 99 12/31/22 09:03 67 16 112/58 99 12/31/22 08:48 96.4 F L 72 16 108/59 99 12/31/22 07:22 97.1 F L 87 16 121/85 100 Intake and Output 12/31/22 12/31/22 01/01/23 14:59 22:59 06:59 Intake Total 1150 Output Total 867 550 500 Balance -867 600 -500 Intake: IV 1000 Oral 150 Output: Urine 250 500 Uretheral (Deleon) 250 Emesis 400 300 Output, Quantitative 467 Blood Loss Other: Voiding Method Indwelling Catheter Indwelling Catheter # Voids 1 Weight 99.79 kg - Exam Lungs: bilateral: normal Chest: Normal S1, Normal S2 Extremities: Present: normal Abdomen: Present: normal appearance, soft. Absent: distention, tenderness Incision: Present: normal, dry, intact Uterus: Present: normal, firm - Labs Labs: Abnormal Lab Results - Last 24 Hours (Table) 12/31/22 Range/Units 06:15 Plt Count 121 L (150-450) k/uL Lymphocytes # 0.9 L (1.0-4.8) k/uL Assessment and Plan (1) Intrauterine growth restriction (IUGR) affecting care of mother Current Visit: Yes Status: Resolved Code(s): O36.5990 - MATERN CARE FOR OTH OR SUSP POOR FETL GRTH, UNSP TRI, UNSP SNOMED Code(s): 698777150 (2) Previous section Current Visit: Yes Status: Resolved Code(s): Z98.891 - HISTORY OF UTERINE SCAR FROM PREVIOUS SURGERY SNOMED Code(s): 701136231 (3) Family planning Current Visit: Yes Status: Resolved Code(s): Z30.09 - ENCOUNTER FOR OTH GENERAL CNSL AND ADVICE ON CONTRACEPTION SNOMED Code(s): 076162947 (4) Status post repeat low transverse section Current Visit: Yes Status: Acute Code(s): Z98.891 - HISTORY OF UTERINE SCAR FROM PREVIOUS SURGERY SNOMED Code(s): 164497383 (5) Status post tubal ligation at time of delivery, current hosp Current Visit: Yes Status: Acute Code(s): O80 - ENCOUNTER FOR FULL-TERM UNCOMPLICATED DELIVERY; Z30.2 - ENCOUNTER FOR STERILIZATION SNOMED Code(s): 31297153172291 Plan: 1. increase ambulation 2. po pain meds 3. cont pp care
[2023-01-01 07:08] LABS: Basophils % (A) 0 %; Eosinophils # (A) 0.1 k/uL (0-0.7); Eosinophils % (A) 1 %; HCT 30.9 % (34.0-46.0); HGB 10.3 gm/dL (11.4-16.0); Lymphocytes # (A) 0.7 k/uL (1.0-4.8); Lymphocytes % (A) 9 %; MCH 28.3 pg (25.0-35.0); MCHC 33.3 g/dL (31.0-37.0); MCV 85.1 fL (80.0-100.0); Mean Platelet Volume 10.8; Monocytes # (A) 0.4 k/uL (0-1.0); Monocytes % (A) 5 %; Neutrophils # (A) 6.9 k/uL (1.3-7.7); Neutrophils % (A) 84 %; Platelet Count 112 k/uL (150-450); RBC 3.63 m/uL (3.80-5.40); RDW 12.9 % (11.5-15.5); WBC 8.2 k/uL (3.8-10.6)
--- NOTE | 2023-01-01 09:00 | P.PN ---
Progress Note - Text Progress Note Date: 01/01/23 Postoperative day 1 status post section under spinal anesthesia, and intrathecal morphine given for postoperative analgesia, patient doing well, there is no anesthesia related complications, Patient had no headache, vital signs stable , Assessment and plan= postop day 1 status post , doing well there is no anesthesia related complication.
[2023-01-02] MEDS: ACETAMINOPHEN TAB 500 MG TAB PO SCH ×2 (01:06→06:54)
[2023-01-02] MEDS: IBUPROFEN 600 MG TAB PO SCH ×2 (06:32→09:19)
[2023-01-02 09:57] VITALS: TEMP 98
[2023-01-02 10:23] VITALS: BP 112/75; PULSE 63
--- NOTE | 2023-01-02 10:37 | P.DS ---
Providers Date of admission: 12/31/22 05:53 Expected date of discharge: 01/02/23 Attending physician: Martina Dick Primary care physician: Stated None Hospital Course: This is a 37-year-old female 4 para 3 at 38-4/7 weeks who presented for repeat section with bilateral partial salpingectomy. She underwent the above-noted procedure on 12/31/2022 and delivered a viable female with scores of 9 at 1 minute and 9 at 5 minutes and infant weight is 6 lbs. 0 oz. Her course and postoperative course have been essentially uncomplicated. She is passing flatus and bowel movement. Her pain is well- controlled. Lochia is minimal. She is bottle feeding. She denies any headaches, blurry vision, or epigastric pain. She denies any increased swelling. Her vital signs have been essentially normal except she did have 2 isolated blood pressures about 12 hours apart that were 160/78 and 180/76. The latest one was done over her sweatshirt. Repeat blood pressure 2 hours later showed 112/75. Patient relates no history of elevated blood pressures with any of her previous pregnancies and she currently has no symptoms. She is anxious to go home. Abdomen is soft with incision clean dry and intact and padmini in place. Bowel sounds are present 4. Fundus is nontender. Extremities show negative Homans. Impression is status post repeat low transverse section with bilateral partial salpingectomy postoperative day #2. Plan is to discharge home later today. Will recheck low-pressure one further time prior to discharge. She is advised to follow up with Dr. Dick in the office in approximately 1 week for a postoperative check and a blood pressure check She is advised to return to the hospital or call if she starts to have any symptoms or signs of preeclampsia. She is advised to call the office if she has any further questions or concerns prior to her appointment time. She will be given a prescription for ibuprofen. [place] will be removed and Steri-Strips placed prior to discharge. Procedures: Repeat low transverse section with bilateral partial salpingectomy on 12/31/2022 Patient Condition at Discharge: Stable Plan - Discharge Summary Discharge Rx Participant: Yes New Discharge Prescriptions: New Ibuprofen [Motrin] 600 mg PO Q6H #60 tab Continue Pnv,Calcium 72/Iron/Folic Acid [ Plus Tablet] 1 tab PO HS Discharge Medication List Pnv,Calcium 72/Iron/Folic Acid [ Plus Tablet] 1 tab PO HS 11/03/14 [History] Ibuprofen [Motrin] 600 mg PO Q6H #60 tab 01/02/23 [Rx] Follow up Appointment(s)/Referral(s): Martina Dick DO [Doctor of Osteopathic Medicine] - 02/12/23 10:45 am (Post Op Appointment 8-24 at 1:30) Activity/Diet/Wound Care/Special Instructions: Instructions 1. Do not begin any exercise program for 3 weeks. 2. Do not resume sexual relations for 3 weeks or longer if uncomfortable. 3. You may take tub baths or showers at any time. 4. You may use tampons if desired after 3 weeks. 5. Keep the area of episiotomy (stitches) clean and dry. 6. If you are not nursing, wear a good fitting, supportive bra during the day and limit fluid intake for at least 1 week to prevent breast engorgement. 7. Call the office, [phone], within the next week to make appointment for your 6 week checkup if it has not already been made. 8. Report any of the following occurrences to the doctor promptly: a. Heavy, excessive bleeding b. Chills, fever c. Burning or frequency of urination d. Pain or redness and breasts if nursing e. Increasing pain or swelling in episiotomy (stitches). In addition to the above instructions, the following additional should be followed: 1. No heavy lifting or straining (exercising) until after 6 week checkup. 2. Keep abdominal incision clean and dry: You may wear a dressing if more comfortable. 3. Make office appointment for 10 days after going home or as instructed by her doctor. Discharge Disposition: HOME SELF-CARE
== END 2023-01-02 13:30 | disposition home or self-care (01) | DRG 539 ==
LOC: 4FBP 05:53
PROVIDERS: ADMIT Obstetrics & Gynecology; ATTEND Obstetrics & Gynecology
PROC: 0UB70ZZ Excision of Bilateral Fallopian Tubes, Open Approach (ICD-10-PCS; principal; 2022-12-31 08:00)
PROC: 10D00Z1 Extraction of Products of Conception, Low, Open Approach (ICD-10-PCS; principal; 2022-12-31 08:00)
DX: O34.211 Maternal care for low transverse scar from previous cesarean delivery (principal); O24.420 Gestational diabetes mellitus in childbirth, diet controlled; Z30.2 Encounter for sterilization; O36.5930 Maternal care for other known or suspected poor fetal growth, third trimester, not applicable or unspecified; Z37.0 Single live birth; Z3A.38 38 weeks gestation of pregnancy; Z28.310 Unvaccinated for COVID-19; Z79.899 Other long term (current) drug therapy
CPT/HCPCS: 83036; 85025; 86850; 86900; 86901; 88302; 88307